=== PATIENT | female | born 1985 | race Caucasian/White ===

== ENCOUNTER 2019-10-13 11:24 | Emergency (ER) | payer OTHER ==
[~2019-10-13] VITALS: Ht 154.9 cm; Wt 56.4 kg
[2019-10-13 11:27] VITALS: BP 119/74
== END 2019-10-13 12:24 | disposition home or self-care (01) ==
LOC: ER 11:44
DX: Z20.828 Contact with and (suspected) exposure to other viral communicable diseases (principal)
CPT/HCPCS: 99283; U0003-CS